=== PATIENT | male | born 1970 | race Hispanic/Latino ===

== ENCOUNTER 2020-06-05 10:07 | Emergency (ER) | payer OTHER ==
[~2020-06-05] VITALS: Ht 172.7 cm; Wt 136.1 kg
[2020-06-05] MEDS ORDERED: HYDROCODONE/APAP 7.5MG-325MG 1 EA TAB PO ONE (10:30)
[2020-06-05] MEDS ORDERED: KETOROLAC TROMETHAMINE 60 MG/2 ML VIAL IM NR (10:30)
== END 2020-06-05 12:40 | disposition home or self-care (01) ==
LOC: ER 10:07
DX: M25.562 Pain in left knee (principal); M54.31 Sciatica, right side
CPT/HCPCS: 72110; 73562; 93971; 99283; J1885